=== PATIENT | male | born 1935 | race Caucasian/White ===

== ENCOUNTER → 2018-12-01 | Outpatient (CLI) | payer OTHER ==
[~2018-12-01] MED LIST: ASPIR 8181 MG PO; IRON325 PO; LEVOTHYROXIN0.125 M1 PO; MULTIVITAMINS1 EAC7 PO; OMEPRAZOLE 20 M20 M1 PO; SIMVASTATIN40 MG PO; VITAMIN B12-FO1 EAC1 PO
== END ==
LOC: RAD 13:11
DX: R91.1 Solitary pulmonary nodule (principal)